=== PATIENT | female | born 1955 | race Caucasian/White ===

== ENCOUNTER 2021-01-22 10:31 | Outpatient (RCR) | payer MEDICARE, SELFPAY | END 2021-02-06 23:59 | disposition home or self-care (01) | LOC: SPT 10:31 | PROVIDERS: PCP Family Medicine; Referring Provider Family Medicine; Visit Provider Family Medicine | DX: M54.9 Dorsalgia, unspecified (principal) | CPT/HCPCS: 97110; 97161 ==

== ENCOUNTER 2021-01-22 15:38 | Outpatient (CLI) | payer MEDICARE, SELFPAY ==
--- NOTE | 2021-01-22 15:47 | MR_ITS ---
WS: [id number] MRI RIGHT KNEE NONCONTRAST TECHNIQUE: Axial PD, coronal PD fat sat, coronal PD, sagittal PD, and sagittal PD fat-sat images obta ined. CLINICAL INFORMATION: RIGHT KNEE PAIN COMPARISON: None. FINDINGS: Distal quadriceps and patella tendons are intact. Hypertrophic patella. Small suprapatellar effusion. Normal ACL and PCL. Small amount of prepatellar and infrapatellar soft tissue edema. Blunting with complex tear of the posterior horn medial meniscus extending to the meniscal root. Jeannette pheral extrusion of the meniscus. Complex tear anterior horn lateral meniscus mild peripheral extrusi on of the lateral meniscus. Medial and lateral collateral ligaments are intact. Small popliteal cyst measuring 2.1 x 1.0 x 4.4 cm AP by transverse by craniocaudal. Advanced chondromalacia patella. This is worse involving the media l patella facet. Lateral subluxation of the patella. MR/MR knee RT wo con* [id number] IMPRESSION: 1. Normal ACL and PCL. 2. Small suprapatellar effusion. 3. Complex tears of the posterior horn medial meniscus at the meniscal root an d anterior horn lateral meniscus extending to the articular surface. 4. Advanced chondromalacia patella with slight lateral subluxation of the martinez lla. Recommend correlation for patellar instability. Chondromalacia worse invol ving the medial patella facet. 5. Small popliteal cyst. 6. Moderate degenerative narrowing medial and lateral joint compartments with grade II to III chondromalacia. Outbridge grading:
== END 2021-01-22 15:39 | disposition home or self-care (01) ==
PROVIDERS: PCP Family Medicine; Visit Provider Family Medicine
DX: M25.461 Effusion, right knee (principal); S83.231A Complex tear of medial meniscus, current injury, right knee, initial encounter; S83.271A Complex tear of lateral meniscus, current injury, right knee, initial encounter; X58.XXXA Exposure to other specified factors, initial encounter; M22.41 Chondromalacia patellae, right knee; M71.21 Synovial cyst of popliteal space [Baker], right knee; M54.9 Dorsalgia, unspecified
CPT/HCPCS: 73721; 97161

== ENCOUNTER → 2021-02-10 10:00 | Outpatient (BNVA) | payer MEDICARE, SELFPAY | PROVIDERS: PCP Family Medicine; Referring Provider Family Medicine; Visit Provider Specialist | DX: M17.11 Unilateral primary osteoarthritis, right knee (principal) | CPT/HCPCS: 73560; 73565 ==

== ENCOUNTER 2021-04-05 14:44 | Emergency (ER) | payer MEDICARE, SELFPAY ==
[2021-04-05 15:11] VITALS: BP 115/75; PULSE 74; RESP 16; TEMP 36.6; O2SAT 99; BMI 24.1
--- NOTE | 2021-04-05 15:50 | ECG_ITS ---
[facility] Test Date: 2021-04-05 Pat Name: Antony Billings Department: Room: Gender: Female Customer Solutions Specialist: : 1955 Requested By: Shira Velasquez Order Number: [id number] Reading MD: ELIDA LILLY Measurements Intervals [place] Rate: 65 P: 53 NE: 149 QRS: 72 QRSD: 85 T: 71 QT: 365 QTc: 381 Interpretive Statements SINUS RHYTHM Compared to ECG 07/24/2015 12:24:11 No significant changes Electronically Signed On 04-07-2021 13:00:17 REWINDER OPERATOR HELPER by ELIDA LILLY [id number]
--- NOTE | 2021-04-05 15:50 | XRR_ITS ---
PROCEDURE INFORMATION: Exam: XR Chest Exam date and time: 04/05/2021 3:50 PM Age: 65 years old Clinical indication: Other: Dizziness TECHNIQUE: Imaging protocol: XR of the chest. Views: 1 view. COMPARISON: CR XR knees AP WB w RT lmt ORTH 02/10/2021 10:07 AM FINDINGS: Lungs: Unremarkable. No consolidation. Pleural spaces: Unremarkable. No pleural effusion. No pneumothorax. Heart/Mediastinum: Unremarkable. No cardiomegaly. Bones/joints: Unremarkable. XR/XR chest 1V portable [id number] IMPRESSION: No acute findings. Radiation Dose CTDIVOL = (mGy): DLP = (mGy-cm)
--- NOTE | 2021-04-05 16:27 | W.ED.DIZZY ---
HPI - Dizziness General: Chief Complaint: Dizziness Stated Complaint: head spinning, nausea, vommiting Time Seen by Provider: 04/05/21 16:27 History of Present Illness: HPI Narrative: Ms. Billings is a 65-year-old lady who presents to the emergency department with dizziness. Symptom onset woke her up from sleep at about 4 AM. She initially felt dizzy even lying down however this worsened with position changes. She subsequently had mild improvement in symptoms in sitting however worsened again when laying down. She has nausea and vomiting associated with this. Symptoms are worse with position change. Overall the course of symptoms has persisted. Intensity is moderate to severe when present. A few episodes of similar in the past. No other changes in health, specific provoking, exacerbating, or alleviating factors identified. Review of Systems General: Reports: 10 or more systems reviewed and unremarkable except in HPI and below PFSH ED PFSH: Family History Other Dementia Diabetes Family history of premature coronary artery disease Social History Smoking and tobacco status: never smoked Physical Exam Narrative: EXAM NARRATIVE: GENERAL/CONSTITUTIONAL - mildly ill appearing. No acute distress. Eyes - PERRL, no conjunctival injection ENMT - Atraumatic external nose and ears. TMs normal. Moist mucous membranes NECK - supple. trachea midline CARDIOVASCULAR - regular rate and rhythm. Peripheral pulses 2+ and equal RESPIRATORY -clear to auscultation bilaterally. No retractions or accessory muscle use. ABDOMEN/GI - Nontender, Nondistended. No tenderness to percussion or evidence of peritonitis MSK - Extremities without obvious deformity or tenderness to palpation SKIN - Warm, Dry NEURO - alert and appropriately oriented. Cranial nerves II through XII intact. Strength and sensation intact. Moves all extremities equally. Mild nystagmus on far right lateral gaze. Nystagmus and symptoms are not reproducible with Constantin-Hallpike or other physical exam maneuvers. Course ED course: - Patient was seen and evaluated by me at bedside - Patient placed on cardiac monitors, IV access obtained - Initial evaluation notable for exam as noted above, mildly ill. - Symptom treatment ordered - Labs notable for no acute hematologic or metabolic abnormalities to explain the patient's symptoms. - The patient's description of symptoms is mostly consistent with peripheral cause however physical exam findings are not totally consistent with peripheral cause and therefore imaging warranted imaging notable for negative head CT and CTA. - Upon serial reexamination after treatment the patient was somewhat improved approximately 50% with treatment - Based on patient history, evaluation, labs, and imaging as interpreted the most likely cause of the patient's condition is peripheral cause of dizziness. I did discuss small risk of CT not diagnosing central cause and need for neurology follow-up if symptoms persist. - The results of ED evaluation were discussed with the patient including prescriptions and/or symptomatic cares (if applicable) including appropriate and responsible use, followup plan, and return precautions. The patient verbalized understanding and felt safe for discharge. - Patient discharged in satisfactory condition. Vital Signs: Vital signs: Vital Signs Temperature 97.9 F 04/05/21 15:11 Pulse Rate 78 04/05/21 20:42 Respiratory Rate 18 04/05/21 20:42 Blood Pressure 132/76 04/05/21 20:42 Pulse Oximetry 98 04/05/21 20:42 MDM - Dizziness Lab Data: Labs: Lab Results 04/05/21 04/05/21 04/05/21 16:40 17:00 17:00 WBC 6.4 10^3/uL 10^3/ uL (4.0-10.0) RBC 4.79 10^6/uL 10^6 /uL (4.1-5.3) Hgb 14.6 g/dL g/dL (11.5-15.3) Hct 45.8 % % (37.0-47.0) MCV 95.6 fl fl (81-99) MCH 30.5 pg pg (28.0-34.0) MCHC 31.9 g/dL g/dL (30.0-36.0) RDW 12.6 % % (12.1-15.1) Plt Count 207 10^3/cmm 10^3 /cmm (130-400) MPV 10.9 fL H fL (7.4-10.4) Neut % (Auto) 66.6 % % Lymph % (Auto) 24.1 % % Boundary % (Auto) 8.0 % % Eos % (Auto) 0.8 % % Baso % (Auto) 0.3 % % Neut # (Auto) 4.23 10^3/uL 10^3 /uL (1.8-7.7) Lymph # (Auto) 1.5 10^3/uL 10^3/ uL (0.8-4.8) Boundary # (Auto) 0.5 10^3/uL 10^3/ uL (0.2-0.9) Eos # (Auto) 0.1 10^3/uL 10^3/ uL (0.0-0.8) Baso # (Auto) 0.0 10^3/uL 10^3/ uL (0.0-0.1) Nucleated RBC % (a uto) 0 % % Nucleated RBCs # 0.0 /100WBC /100W BC Sodium 144 mmol/L mmol/L (136-145) Potassium 4.2 mmol/L mmol/L (3.5-5.1) Chloride 105 mmol/L mmol/L (98-107) Carbon Dioxide 27 mmol/L mmol/L (22-29) Anion Gap 16.2 (5-19) BUN 17 mg/dL mg/dL (8-23) Creatinine 0.7 mg/dL mg/dL (0.5-0.9) GFR Calculation 83.5 mL/min L mL/ min (90-130) Glucose 96 mg/dL mg/dL (65-115) Calculated Osmolal ity 299 mOsm/kg H mOs m/kg (285-295) Calcium 9.6 mg/dL mg/dL (8.5-10.5) Magnesium 2.3 mg/dL mg/dL (1.7-2.3) Total Bilirubin 0.3 mg/dL mg/dL (0.15-1.2) AST 21 U/L U/L (0-32) ALT 22 U/L U/L (0-33) Alkaline Phosphata se 104 IU/L IU/L (35-105) Total Protein 7.3 g/dL g/dL (6.6-8.7) Albumin 4.7 g/dL g/dL (3.5-5.2) Globulin 2.6 g/dL g/dL (1.3-4.6) TSH 2.20 uIU/mL uIU/m L (0.27-4.20) Urine Color Straw (Yellow) Urine Appearance Clear (CLEAR) Urine pH 5 (5-7) Ur Specific Gravit y 1.020 (1.005-1.030) Urine Protein Neg (Negative) Urine Glucose (UA) Norm (Normal) Urine Ketones Negative (Negative) Urine Blood Neg (Negative) Urine Nitrate Negative (Negative) Urine Bilirubin Neg (Negative) Urine Urobilinogen Norm mg/dL mg/dL (Negative) Ur Leukocyte Aida ase Negative (Negative) EKG Data^: EKG 1: Attestation: I personally reviewed and interpreted this EKG as follows: EKG interpretation date: 04/05/21 EKG interpretation time: 16:08 Interpretation: Twelve-lead EKG shows a regular rhythm at a rate of 65. SD interval 149, QRS duration 85, QTc 381. Normal axis. Interpretation: Sinus rhythm. Discharge Plan Discharge Patient Disposition: Home Clinical Impression: Dizziness, Vertigo Condition: Stable Prescriptions: New meclizine 25 mg tablet 25 mg PO TID PRN (Reason: dizziness) Qty: 20 RF: 0 No Action Vitamin C 1,000 mg Tablet 1,000 mg PO DAILY RF: 0 zinc 50 mg Tablet 50 mg PO DAILY RF: 0 Vitamin D3 25 mcg (1,000 unit) Capsule 25 mcg PO DAILY RF: 0 Discharge Orders: Discharge ED (Routine); Ordered 04/05/21 Ordered By: Wilian Merida Referrals: Rafita Gilliland MD [Primary Care Provider] - Discharge Diet: Usual diet Discharge Activity: Increase activity as tolerated Patient Instructions: Vertigo (ED), Dizziness (ED) Activity Restrictions/Additional Instructions: Thank you for visiting the emergency department. You were seen and evaluated for dizziness. The exact cause of your symptoms is unclear though is likely related to peripheral cause of dizziness as discussed. Please follow-up with your primary care provider. Please follow-up with neurology if symptoms persist. Please return to the emergency department for worsening symptoms, any new neurologic symptoms, or anything else that you are concerned about and feel needs emergency department evaluation. Coding Level of Care Code ED Mental Health Counselor for Kleber Carmona
[2021-04-05 16:55] LABS: Add Urine Microscopic? NO; Charge for UA Resulting for Rev
--- NOTE | 2021-04-05 17:05 | CTR_ITS ---
PROCEDURE INFORMATION: Exam: CT Head Without Contrast Exam date and time: 04/05/2021 5:05 PM Age: 65 years old Clinical indication: Patient HX: C/O new onset dizziness; Additional info: Dizzy TECHNIQUE: Imaging protocol: Computed tomography of the head without contrast. Radiation optimization: All CT scans at this facility use at least one of these dose optimization techniques: automated exposure control; mA and/or kV adjustment per patient size (includes targeted exams where dose is matched to clinical indication); or iterative reconstruction. COMPARISON: CT head wo con* [id number] 07/24/2015 10:46 AM RADIATION DOSE METRICS: Total DLP (mGy-cm): 819.61 FINDINGS: Brain: Normal. No hemorrhage. Unremarkable white matter. No mass effect. Cerebral ventricles: No ventriculomegaly. Paranasal sinuses: Visualized sinuses are unremarkable. No fluid levels. Mastoid air cells: Visualized mastoid air cells are well aerated. Bones/joints: Unremarkable. No acute fracture. Soft tissues: Unremarkable. CT/CT head wo con* [id number] IMPRESSION: No acute intracranial abnormality. Radiation Dose CTDIVOL = (mGy): DLP = 819.61 (mGy-cm)
--- NOTE | 2021-04-05 17:05 | CTR_ITS ---
PROCEDURE INFORMATION: Exam: CT Angiography Head With Contrast, Arteriography Exam date and time: 04/05/2021 5:05 PM Age: 65 years old Clinical indication: Dizziness and giddiness; Patient HX: C/O new onset dizziness; Additional info: Dizzy TECHNIQUE: Imaging protocol: Computed tomography angiography of the head with contrast. Exam focused on the arteries. 3D rendering (Not supervised by radiologist): MIP and/or 3D reconstructed images were created by the technologist. Radiation optimization: All CT scans at this facility use at least one of these dose optimization techniques: automated exposure control; mA and/or kV adjustment per patient size (includes targeted exams where dose is matched to clinical indication); or iterative reconstruction. Contrast material: OMNI 350; Contrast volume: 95 ml; Contrast route: INTRAVENOUS (IV); COMPARISON: CT head wo con* [id number] 04/05/2021 6:02 PM RADIATION DOSE METRICS: Total DLP (mGy-cm): 1720.82 FINDINGS: ANTERIOR CIRCULATION: Right internal carotid artery: Unremarkable. Intracranial segment is patent with no significant stenosis. No aneurysm. Right middle cerebral artery: Unremarkable. No occlusion or significant stenosis. No aneurysm. Right anterior cerebral artery: Unremarkable. No occlusion or significant stenosis. No aneurysm. Left internal carotid artery: Unremarkable. Intracranial segment is patent with no significant stenosis. No aneurysm. Left middle cerebral artery: Unremarkable. No occlusion or significant stenosis. No aneurysm. Left anterior cerebral artery: Unremarkable. No occlusion or significant stenosis. No aneurysm. POSTERIOR CIRCULATION: Right vertebral artery: Unremarkable. No occlusion or significant stenosis. No aneurysm. Left vertebral artery: Unremarkable. No occlusion or significant stenosis. No aneurysm. Basilar artery: Unremarkable. No occlusion or significant stenosis. No aneurysm. Right posterior cerebral artery: Unremarkable. No occlusion or significant stenosis. No aneurysm. Left posterior cerebral artery: Unremarkable. No occlusion or significant stenosis. No aneurysm. Brain: No definite mass, mass effect, or midline shift. Cerebral ventricles: No ventriculomegaly. Bones/joints: Unremarkable. No acute fracture. Soft tissues: Unremarkable. IMPRESSION: No intracranial large vessel stenosis or occlusion. PROCEDURE INFORMATION: Exam: CT Angiography Neck With Contrast Exam date and time: 04/05/2021 5:05 PM Age: 65 years old Clinical indication: Dizziness and giddiness; Patient HX: C/O new onset dizziness; Additional info: Dizzy TECHNIQUE: Imaging protocol: Computed tomography angiography of the neck with contrast. 3D rendering (Not supervised by radiologist): MIP and/or 3D reconstructed images were created by the technologist. Radiation optimization: All CT scans at this facility use at least one of these dose optimization techniques: automated exposure control; mA and/or kV adjustment per patient size (includes targeted exams where dose is matched to clinical indication); or iterative reconstruction. Contrast material: OMNI 350; Contrast volume: 95 ml; Contrast route: INTRAVENOUS (IV); COMPARISON: CT head wo con* [id number] 04/05/2021 6:02 PM RADIATION DOSE METRICS: Total DLP (mGy-cm): 1720.82 FINDINGS: Right common carotid artery: No stenosis. No dissection or occlusion. Right internal carotid artery: No stenosis of the extracranial segment. No dissection or occlusion. Right external carotid artery: No occlusion or stenosis of the origin. Left common carotid artery: No stenosis. No dissection or occlusion. Left internal carotid artery: No stenosis of the extracranial segment. No dissection or occlusion. Left external carotid artery: No occlusion or stenosis of the origin. Right vertebral artery: No stenosis. No dissection or occlusion. Left vertebral artery: No stenosis. No dissection or occlusion. Thyroid: 11 mm hyperenhancing nodule within thyroid isthmus. No enlargement of thyroid lobes. Soft tissues: Normal. No significant soft tissue swelling. Bones/joints: The cervical spine demonstrates moderate degenerative changes at multiple levels. Mild reversal of curvature. CT/CT angio headneck* [id number] IMPRESSION: 1. No carotid artery stenosis. 2. Negative for vascular occlusion in the neck. COMMENTS: Consistent with the [employer]'s Incidental Findings Committee white paper (J Am Romero Radiol 2015): In patients aged 35 years and older with an incidental thyroid nodule equal to or greater than 1.[address], MRI or extrathyroidal US, further evaluation with dedicated thyroid US is recommended for patients with normal life expectancy and without comorbidities. For smaller nodules without suspicious features, no further evaluation or follow up is recommended. REFERENCES: NASCET CRITERIA. The degree of internal carotid artery stenosis is based on NASCET criteria. Normal is no stenosis. Mild is less than 50% stenosis. Moderate is 50-69% stenosis. Severe is 70% to 99% stenosis. Total occlusion is no detectable patent lumen. Radiation Dose CTDIVOL = (mGy): DLP = 1720.82~1720.82 (mGy-cm)
[2021-04-05 17:15] LABS: Bilirubin Urine Neg (Negative); Blood Urine Neg (Negative); Glucose Urine UA Norm (Normal); Ketones Urine Negative (Negative); Leukocyte Esterase Urine Negative (Negative); Nitrate Urine Negative (Negative); Protein Urine Neg (Negative); Urine Appearance Clear (CLEAR); Urine Color Straw (Yellow); Urobilinogen Urine Norm (Negative); pH Urine 5 (5-7)
[2021-04-05 17:25] LABS: Basophils % 0.3 %; Eosinophils # 0.1 10^3/uL (0.0-0.8); Eosinophils % 0.8 %; Hematocrit 45.8 % (37.0-47.0); Hemoglobin 14.6 g/dL (11.5-15.3); Lymphocytes # 1.5 10^3/uL (0.8-4.8); Lymphocytes % 24.1 %; Mean Corpuscular HGB Conc 31.9 g/dL (30.0-36.0); Mean Corpuscular Hemoglobin 30.5 pg (28.0-34.0); Mean Corpuscular Volume 95.6 fl (81-99); Mean Platelet Volume 10.9 fL (7.4-10.4); Monocytes # 0.5 10^3/uL (0.2-0.9); Neutrophils # 4.23 10^3/uL (1.8-7.7); Neutrophils % 66.6 %; Nucleated Red Blood Cells % 0 %; Platelet Count 207 10^3/cmm (130-400); Red Blood Count 4.79 10^6/uL (4.1-5.3); Red Cell Distribution Width 12.6 % (12.1-15.1); White Blood Count 6.4 10^3/uL (4.0-10.0)
[2021-04-05] MEDS: meclizine 25 mg tablet PO ×2 (17:33→20:30)
[2021-04-05] MEDS: ondansetron 2 mg/ML SDV 2 mL 4 MG IVP (17:37)
[2021-04-05 17:54] LABS: Alanine Aminotransferase 22 U/L (0-33); Albumin Level 4.7 g/dL (3.5-5.2); Alkaline Phosphatase 104 IU/L (35-105); Anion Gap 16.2 (5-19); Aspartate Amino Transferase 21 U/L (0-32); Blood Urea Nitrogen 17 mg/dL (8-23); Calcium 9.6 mg/dL (8.5-10.5); Carbon Dioxide 27 mmol/L (22-29); Chloride 105 mmol/L (98-107); Globulin 2.6 g/dL (1.3-4.6); Glomerular Filtration Rate 83.5 mL/min (90-130); Glucose 96 mg/dL (65-115); Magnesium 2.3 mg/dL (1.7-2.3); Osmolality Calculated 299 mOsm/kg (285-295); Potassium 4.2 mmol/L (3.5-5.1); Sodium 144 mmol/L (136-145); Total Bilirubin 0.3 mg/dL (0.15-1.2); Total Protein 7.3 g/dL (6.6-8.7)
[2021-04-05] MEDS: iohexol 350 mg/mL 100 mL Btl IV (18:08)
[2021-04-05] MEDS: sodium chloride 0.9% 1,000 ML 999 ML IV (18:25)
[2021-04-05 19:52] VITALS: BP 132/76; BP 135/85; BP 147/80; PULSE 78; PULSE 82; PULSE 92
[2021-04-05 19:53] VITALS: BP 132/76; PULSE 78; RESP 18; O2SAT 98
[2021-04-05 20:42] VITALS: BP 132/76; PULSE 78; RESP 18; O2SAT 98
== END 2021-04-05 20:37 | disposition home or self-care (01) ==
PROVIDERS: Physician Assistant; Emergency Provider Emergency Medicine; PCP Family Medicine
DX: R42 Dizziness and giddiness (principal)
CPT/HCPCS: 70450; 70496; 70498; 71045; 80053; 81003; 83735; 84443; 85025; 93005; 96361; 96374; 99284; J2405; J7030; J8597; Q9967

== ENCOUNTER 2021-07-07 06:54 | Outpatient (CLI) | payer MEDICARE, SELFPAY ==
--- NOTE | 2021-07-07 07:16 | MM_ITS ---
WS: [id number] BILATERAL DIGITAL SCREENING MAMMOGRAPHY WITH CAD CLINICAL INFORMATION: SCREENING HISTORY: Screening mammogram. No current complaints. COMPARISON: None. TECHNIQUE: Bilateral CC and MLO views. FINDINGS: Scattered fibroglandular densities bilaterally. A few incidental punctate calcifications LEFT breast. No suspicious focal mass, asymmetry, calcifications, or architectural distortion. No evidence of mal ignancy. MM/[place] [id number] IMPRESSION: BI-RADS: 2-Benign FOLLOW UP: 1 Year Follow-up Recommend return to annual screening mammography.
== END 2021-07-07 06:55 | disposition home or self-care (01) ==
PROVIDERS: PCP Family Medicine; Visit Provider Family Medicine
DX: Z12.31 Encounter for screening mammogram for malignant neoplasm of breast (principal)
CPT/HCPCS: 77067

== ENCOUNTER 2023-12-07 08:58 | Outpatient (CLI) | payer MEDICARE, SELFPAY ==
--- NOTE | 2023-12-07 09:08 | MM_ITS ---
WS: [id number] BILATERAL 3D TOMOSYNTHESIS DIGITAL SCREENING MAMMOGRAPHY WITH CAD CLINICAL INFORMATION: SCREENING HISTORY: Screening mammogram. No current complaints. COMPARISON: 2021 TECHNIQUE: Bilateral CC and MLO views. FINDINGS: The breasts are composed of heterogeneous fibroglandular density tissue, which can limit the detectio n of small underlying mass lesions. No suspicious mass, asymmetry, calcifications, or architectural d istortion. No evidence of malignancy. Few incidental punctate calcifications. MM/[place] [id number] IMPRESSION: BI-RADS: 2-Benign FOLLOW UP: 1 Year Follow-up Recommend return to annual screening mammography.
== END 2023-12-07 08:59 | disposition home or self-care (01) ==
LOC: RAD 08:59
PROVIDERS: PCP Family Medicine; Visit Provider Family Medicine
DX: Z12.31 Encounter for screening mammogram for malignant neoplasm of breast (principal); R92.333 Mammographic heterogeneous density, bilateral breasts
CPT/HCPCS: 77063; 77067

== ENCOUNTER 2024-02-10 07:58 | Outpatient (CLI) | payer MEDICARE, SELFPAY ==
[2024-02-10 08:04] VITALS: BMI 23.3
--- NOTE | 2024-02-10 08:05 | ECG_ITS ---
[facility] Test Date: 2024-02-10 Pat Name: Antony Billings Department: Room: Gender: Female Emblem Maker: : 1955 Requested By: Rafita Lezama Order Number: [id number] Villanueva MD: Edin Luciano M.D. Interpretive Statements Exercise sestamibi stress test EXERCISE DATA: The patient was exercised by Aubrey protocol. Baseline heart rate was 70 beats per minute. Baseline blood pressure was 130/85 millimeters of mercury. Maximal predicted heart rate was 150 beats per minute. Maximum heart rate achieved was 145, which was 96% of the maximum predicted heart rate. Maximum blood pressure was 140/66 millimeters of mercury. Total exercise time was 4 minutes 35 seconds. Maximum METs achieved was 7. The reason for ending the test was completion of protocol. The patient complained of shortness of breath during the stress test, which then resolved at the end of the test. ELECTROCARDIOGRAM: BASELINE: Showed sinus rhythm, normal axis, no significant ST-T changes at the baseline noted. [] EXERCISE: At the peak exercise level, [] No significant ST-T changes suggestive of ischemia noted. [] RECOVERY: During the recovery period, heart rate dropped appropriately. No significant ST-T changes in the recovery suggestive of ischemia noted. [] CONCLUSION: 1. Exercise capacity is fair. 2. Heart rate response was appropriate. 3. Blood pressure response was appropriate. 4. Symptoms not suggestive of ischemia. 5. Electrocardiogram portion of the stress test was not suggestive of ischemia. 6. Nuclear scan will be documented separately. Electronically Signed On 02-18-2024 21:29:35 CDT by Edin Luciano M.D. [id number]
--- NOTE | 2024-02-10 08:06 | NMCV_ITS ---
NM blanca perf SPECT r/s* [id number] Antony Billings Age: 68 Gender: F : 1955 Exam Date: 02/10/2024 08:37 Ordering Phys: Rafita Gilliland MD Technologist: TAHMINA De Leon Exam Location: [facility] Indications: CP STRESS TEST Please see separate stress test report in [facility] for full findings IMAGE PROTOCOL Rest/Stress 1 Exercise Day Radiopharmaceutical Dose (mCi) Administration Site Administered by Rest: Tc-99m 10.4 IV TAHMINA Jama Sestamibi Stress:Tc-99m 32.8 IV TAHMINA Jama Sestamibi Rest: 10-Feb-2024 60 Discovery 630 Stress: 10-Feb-2024 30 Discovery 630 Radiopharmaceutical was injected at 89 % maximum heart rate. Images obtained in supine and prone position. SPECT RESULTS Technical Quality: Excellent Raw Data Analysis: Normal Image Corrections: No attenuation or motion correction applied Summed Stress Score: 1 Summed Rest Score: 0 Summed Difference Score: 1 PERFUSION FINDINGS Medium sized area of mildly reduced tracer uptake noted in basal to mid anterior and basal to mid inferior wall, in the absence of wall motion abnormality and normal left ventricular ejection fraction it appeared to be an artifact since prone images were not performed. FUNCTIONAL RESULTS (calculated via Gated SPECT) Stress Image LV EF (%): 89 Stress EDV (mL):37 TID: 1 Stress ESV (mL):4 FUNCTIONAL FINDINGS: There is normal left vec:prosolv cardiovascular echo IMPRESSIONS Medium sized area of mildly reduced tracer uptake noted in basal to mid inferior and basal to mid anterior wall, in the absence of wall motion abnormality and normal left ventricular ejection fraction this appeared to be an artifact. This study in general is negative for ischemia. Sherwin Serrato MD (Electronically Signed) Final Date: 11 February 2024 20:13 S
[2024-02-10 09:44] VITALS: BP 139/82; PULSE 82
== END 2024-02-10 07:59 | disposition home or self-care (01) ==
LOC: CDL 08:00
PROVIDERS: PCP Family Medicine; Visit Provider Family Medicine
DX: R07.9 Chest pain, unspecified (principal); R06.02 Shortness of breath
CPT/HCPCS: 36415; 78452; 93017; A9500

== ENCOUNTER → 2025-05-08 09:27 | Outpatient (BNVA) | payer MEDICARE, SELFPAY | PROVIDERS: PCP Family Medicine; Visit Provider Podiatrist Foot & Ankle Surgery | DX: L60.3 Nail dystrophy (principal) | CPT/HCPCS: 99203 ==